=== PATIENT | female | born 1995 | race Caucasian/White ===

== ENCOUNTER 2022-06-25 16:04 | Outpatient (CLI) | payer BC, SELFPAY ==
[2022-06-25 23:37] LABS: Chlamydia DNA Amplified* NOT DETECTED (No Detected); GC DNA Amplified* NOT DETECTED (No Detected)
== END 2022-06-25 16:05 | disposition home or self-care (01) ==
PROVIDERS: PCP Physician Assistant Medical; Visit Provider Registered Nurse
DX: N93.9 Abnormal uterine and vaginal bleeding, unspecified (principal)
CPT/HCPCS: 84443; 87491; 87591

== ENCOUNTER 2022-06-30 15:49 | Outpatient (CLI) | payer BC, SELFPAY ==
--- NOTE | 2022-06-30 16:00 | CRLHL7_ITS ---
For Patients: As a result of the Century Cures Act, medical imaging exams and procedure reports are released immediately into your electronic medical record. You may view this report before your referring provider. If you have questions, please contact your health care provider. INDICATION: irregular bleeding COMPARISON: none TECHNIQUE: 2D hicks scale and color Doppler images were acquired of the pelvis using a transabdominal and transvaginal approach. FINDINGS: Sonographic images demonstrate a normal size and smooth outer contour of the uterus. Uterus measures 7.8 cm in length by 3.8 cm in AP diameter by 5.1 cm in transverse dimension. The myometrium has a normal uniform echotexture. The endometrial lining measures 13 mm in composite thickness. The right ovary measures 2.6 x 2.3 x 2.3 cm in size and the left ovary measures 3.4 x 2.9 x 2.6 cm. Collapsing left ovarian cyst measuring 1.8 x 1.8 x 1.7 cm. The ovaries demonstrate normal arterial and venous blood flow on color Doppler analysis. Trace pelvic free fluid. IMPRESSION: Endometrial thickness 13 millimeters. Dictated by Neri Bell MD @ 07/01/2022 11:21:07 AM (Electronically Signed)
== END 2022-06-30 15:50 | disposition home or self-care (01) ==
LOC: US 15:50
PROVIDERS: PCP Physician Assistant Medical; Visit Provider Registered Nurse
DX: N93.9 Abnormal uterine and vaginal bleeding, unspecified (principal); R93.89 Abnormal findings on diagnostic imaging of other specified body structures
CPT/HCPCS: 76830; 76856